=== PATIENT | male | born 1980 | race Caucasian/White ===

== ENCOUNTER 2016-06-23 09:32 | Emergency (ER) | payer OTHER | END 2016-06-23 10:05 | disposition home or self-care (01) | LOC: CED 09:32 | DX: M54.12 Radiculopathy, cervical region (principal); F17.210 Nicotine dependence, cigarettes, uncomplicated | CPT/HCPCS: 96372; 99283; J1885; J2360 ==

== ENCOUNTER → 2016-09-05 | Outpatient (CLI) | payer OTHER ==
--- NOTE | ~2016-09-05 | CR58 ---
[facility] A Service of [facility] / [facility] RADIOLOGY TEXT RESULTS PATIENT: LUIS AZUL LOCATION: [facility] : 78 UNIT #: [id number] AGE: [address]: Hal Monsalve MD SEX: M ORDER DR: [id number] [facility] [address] [place], [place] [address] [id number] O MR#: [id number] Acc #: [id number] NAME: LUIS AZUL : 1980 SEX: M STUDY DATE/TIME: 09/05/2016 13:12 UNIT: [facility] ROOM: STUDY DESCRIPTION: CR Cervical Spine 2 or 3 Views Attending Physician: Hal Monsalve M.D. Ordering Physician: Hal Monsalve M.D. Primary Care Physician: Hal Monsalve M.D. MEDICAL IMAGING REPORT This report is preliminary unless electronic signature is present EXAM Three-view cervical spine. DATE: 09/05/2016 HISTORY Chronic neck pain. The patient states pain in the neck on the right side for a couple of months. Plate fusion at C4, C5 and C6 in 2014. COMPARISON None. FINDINGS Anterior plate and screw fusion changes are present at C5, C6 and C7. Disc spacer devices are present at C5-6 and C6-7. Hardware appears intact without evidence of loosening. The cervical vertebral bodies demonstrate normal height and alignment. No fracture. No subluxation. The nonsurgical disc levels appear appropriately maintained in height. Craniocervical junction appears intact. No abnormal prevertebral soft tissue swelling. Suspected mild posterior osteophyte formation and C4-5, C5-6 and C6-7. IMPRESSION 1. Suspected mild posterior osteophyte formation at C4-5, C5-6 and C6-7. 2. Anterior plate and screw fusion with intervening disc deice at C5 through C7. Hardware appears intact. 3. No acute cervical spine findings. Dictated by... Alana Gordon M.D. [facility] A Service of [facility] RADIOLOGY TEXT RESULTS PATIENT: LUIS AZUL LOCATION: [facility] : 78 UNIT #: [id number] AGE: [address]: Hal Monsalve MD SEX: M ORDER DR: THIS IS AN ELECTRONICALLY VERIFIED REPORT Alana Gordon M.D. at 09/06/2016 10:40 AM Antwan TD: 09/05/2016 23:29 JOB #: [id number] MEDICAL IMAGING REPORT Page 1 of 1 COPY
== END | disposition home or self-care (01) ==
LOC: CRAD 12:56
DX: M54.2 Cervicalgia (principal); M25.78 Osteophyte, vertebrae; Z98.1 Arthrodesis status
CPT/HCPCS: 72040

== ENCOUNTER → 2016-09-09 | Outpatient (CLI) | payer OTHER ==
--- NOTE | ~2016-09-09 | MR32 ---
[facility] A Service of [facility] RADIOLOGY TEXT RESULTS PATIENT: LUIS AZUL LOCATION: [facility] : 78 UNIT #: [id number] AGE: [address]: Hal Monsalve MD SEX: M ORDER DR: [id number] [facility] [address] [place], [place] [address] [id number] O MR#: [id number] Acc #: [id number] NAME: LUIS AZUL : 1980 SEX: M STUDY DATE/TIME: 09/09/2016 7:53 UNIT: [facility] ROOM: STUDY DESCRIPTION: MR Cervical Wo Contrast Attending Physician: Hal Monsalve M.D. Referring Physician: Hal Monsalve M.D. Ordering Physician: Hal Monsalve M.D. Primary Care Physician: Hal Monsalve M.D. MRI CENTER REPORT This report is preliminary unless electronic signature is present. EXAM Cervical spine MRI without contrast 09/09/2016 PROCEDURE Routine cervical spine MR without contrast. COMPARISON CT cervical spine from [facility] dated 03/09/2015. CLINICAL HISTORY 4-6 month history of neck and right arm pain and right arm numbness, no known injury. Prior fusion. FINDINGS There has been fusion from C5-C7 anteriorly. Alignment is otherwise normal. There is allowing for metallic field distortion bone marrow signal is normal and cord signal is normal. The posterior fossa and its contents are normal. The paraspinous soft tissues are unremarkable. At C2-3, there is slight degenerative change but no substantial canal or foraminal stenosis. At C3-4, disc and endplate change cause mild canal stenosis without cord compression and minimal left and mild right foraminal narrowing. At C4-5, there is a right side bony ridge and mild canal stenosis. There is right ventral cord flattening but no definite true cord compression. There is no abnormal cord signal and the foramina are within normal limits. At C5-6, there has been fusion. There is left side canal stenosis and the cord is slightly displaced though not clearly compressed. The right foramen is normal but there is mild left foraminal narrowing. [facility]. [facility] A Service of [facility] & [facility] RADIOLOGY TEXT RESULTS PATIENT: LUIS AZUL LOCATION: [facility] : 78 UNIT #: [id number] AGE: [address]: Hal Monsalve MD SEX: M ORDER DR: At C6-7, there is a disc and osteophyte complex with mild canal stenosis and possible but no definite slight cord compression. There is moderate left and moderate to severe right foraminal stenosis. At C7-T1, there is mild canal narrowing and minimal left and mild right foraminal narrowing. IMPRESSION Postsurgical changes from anterior fusion at C5-C7. There is some degenerative canal stenosis at other levels detailed above but there is no definite cord compression at any level though there are some areas of cord displacement and/or slight deformity. No abnormal cord signal. Dictated by... Basilio Munson M.D. THIS IS AN ELECTRONICALLY VERIFIED REPORT Basilio Munson M.D. at 09/15/2016 5:37 PM TEV/tj TD: 09/11/2016 10:29 JOB #: [id number] MRI CENTER REPORT Page 1 of 1 COPY
== END | disposition home or self-care (01) ==
LOC: CMRI 07:28
DX: M54.2 Cervicalgia (principal); M19.90 Unspecified osteoarthritis, unspecified site; Z98.1 Arthrodesis status; M48.02 Spinal stenosis, cervical region
CPT/HCPCS: 72141